=== PATIENT | female | born 1995 | race Caucasian/White ===

== ENCOUNTER 2017-12-13 13:04 | Emergency (ER) | payer BC ==
[2017-12-13 15:32] VITALS: BP 103/61
--- NOTE | 2017-12-13 15:45 | UC ---
Back Pain HPI - HPI Summary HPI Summary: 22 y/o female presents to the urgent care c/o lower back pain s/p fall while running on track practice yesterday around 1200N. Pt states she had Hx of back injury about 6 years ago w/ a bulged disc at L5. She felt on her back. Pain is 8 /10 radiating to RT side of hip w/ mild numbness. Pt denies saddle anesthesia, urinary or fecal incontinence, SOB, chest pain, abdominal pain, N/V/D - History of Current Complaint Chief Complaint: UCBackPain Stated Complaint: BACK PAIN Time Seen by Provider: 12/13/17 15:27 Hx Obtained From: Patient Hx Last Menstrual Period: 12/07/2017 Onset/Duration: Sudden Onset, Lasting Days - 1 day, Still Present Timing: Constant Severity Initially: Moderate Severity Currently: Moderate Pain Intensity: 8 Pain Scale Used: 0-10 Numeric Back Pain: Is Discrete @ - Lower back around L5 Character: Sharp, Throbbing, Spasmodic Aggravating Factor(s): Movement, Lifting, Bending Alleviating Factor(s): Rest, OTC Meds Associated Signs And Symptoms: Positive: Numbness, Tingling - RT side leg. Negative: Swelling, Redness, Bruising, Fever, Weakness, Abdominal Pain, Flank Pain, Bladder Incontinence, Bowel Incontinence, Pain with Weight Bearing - Risk Factors AAA Risk Factors: Negative TAD Risk Factors: Negative Cauda Equina Risk Factors: Negative Epidural Abscess Risk Factors: Negative - Allergies/Home Medications Allergies/Adverse Reactions: Allergies Allergy/AdvReac Type Severity Reaction Status Date / Time MS Fish Allergy Allergy Anaphylatic Verified 01/19/17 08:54 [Fish Allergy] Shock MS Sesame Oil [Sesame Oil] Allergy Anaphylatic Verified 01/19/17 08:54 Shock Tree Nuts Allergy Anaphylatic Verified 01/19/17 08:54 Shock GLUTEN Allergy GI Upset Uncoded 01/19/17 08:54 Home Medications: Home Medications Naproxen Sod/Diphenhydramine [Aleve PM 220-25 mg] 12/13/17 [History] PMH/Surg Hx/FS Hx/Imm Hx Previously Healthy: Yes - Pt denies PMHX - Surgical History Surgical History: Yes Surgery Procedure, Year, and Place: 5TH METATARSAL REPAIR RT FOOT - Family History Known Family History: Positive: Respiratory Disease - Asthma - Social History Occupation: Student Lives: With Family Alcohol Use: None Substance Use Type: None Smoking Status (MU): Never Smoked Tobacco - Immunization History Vaccination Up to Date: Yes Review of Systems Constitutional: Negative Skin: Negative Eyes: Negative ENT: Negative Respiratory: Negative Cardiovascular: Negative Gastrointestinal: Negative Genitourinary: Negative Motor: Negative Neurovascular: Negative Musculoskeletal: Decreased ROM - Lower back, Other: - lower back pain s/p jumping on a race competition Neurological: Negative Psychological: Negative Is Patient Immunocompromised?: No All Other Systems Reviewed And Are Negative: Yes Physical Exam Triage Information Reviewed: Yes Appearance: Well-Appearing, No Pain Distress, Well-Nourished, Thin Vital Signs: Initial Vital Signs Temp 97.9 F 12/13/17 15:25 Pulse 85 12/13/17 15:25 Resp 16 12/13/17 15:25 BP 103/61 12/13/17 15:25 Pulse Ox 100 12/13/17 15:25 Vital Signs Reviewed: Yes Eyes: Positive: Conjunctiva Clear - PERRLA, EOMI. ENT: Positive: Normal ENT inspection, Hearing grossly normal, Pharynx normal, TMs normal, Uvula midline Neck: Positive: Supple, Nontender, No Lymphadenopathy Respiratory: Positive: Chest non-tender, Lungs clear, Normal breath sounds, No respiratory distress Cardiovascular: Positive: RRR, No Murmur, Pulses Normal, Brisk Capillary Refill Abdomen Description: Positive: Nontender, No Organomegaly, Soft. Negative: CVA Tenderness (R), CVA Tenderness (L) Bowel Sounds: Positive: Present Musculoskeletal: Positive: Strength Intact, Other: - BACK: Patient walked into the urgent care room with symmetric ambulation, No signs of limping, antalgic, able to bear weight. No signs of trauma, No masses palpated. Point tenderness at the level of L5-S1, No CVAT, no flank ecchymosis . Mild sacroiliac notch tenderness, No saddle anesthesia.ROM: limited due to pain, Straight Leg Raise: negative. Patellar reflexes: brisk, symmetric Muscle strength lower extremities. Dorsiflexion/ plantar flexion of ankles. Heel/ toe walk. Lower extremities: Femoral, popliteal, posterior tibial, and dorsalis pedis pulses WNL. Pt refuse rectal exam Neurological: Positive: Alert, Muscle Tone Normal Psychological Exam: Normal Skin Exam: Normal - Additional Comments 1- Please take Naproxen PO as directed after meals for pain. 2- Take Flexeril PO as directed for muscle spasm. Please do not drive while taking the medication. 3- Wear a back support. Avoid strenuous exercise of heavy lifting. 4- Please follow up with Orthopedic Dr or your PCP in 1 week if not improvement of symptoms, for further management. Back Pain Course/Dx - Course Course Of Treatment: 22 y/o female presents to the urgent care c/o lower back pain s/p fall while running on track practice yesterday around 1200N. Pt states she had Hx of back injury about 6 years ago w/ a bulged disc at L5. She felt on her back. Pain is 8/10 radiating to RT side of hip w/ mild numbness. Pt denies saddle anesthesia, urinary or fecal incontinence, SOB, chest pain, abdominal pain, N/V/D. Hx obtained. PE performed. LMP:12/10/2017. Lumbosacral X-ray ordered, Impression:Minor levoscoliosis, No acute osseous injury observed. Toradol IM inj ordered at the clinic. Given by nurse. Pt tolerated well medication and pain decrease. Pt Rx Naproxen PO, Prednisone and flexeril PO and given a PT referral. Patient was instructed to the f/u [facility] orthopedic in 1 week if symptoms do not improve or worsen. Patient understands and agrees. Patient is able to ambulate freely w/o aid or limp. Plan of care was discussed with the patient and patient understands and agrees. All questions were answered at patient satisfaction. Pt left clinic hemodynamically stable. - Differential Dx/Diagnosis Differential Diagnosis/HQI/PQRI: Compressive Cord Syndrome, Fracture, Herniated Disc, Strain, Sprain Provider Diagnoses: 1- Acute lower back pain s/p fall. 2- back muscle spasm. 3-Scoliosis Discharge - Discharge Plan Condition: Stable Disposition: HOME Prescriptions: Cyclobenzaprine TAB* [Flexeril 10 MG TAB*] 10 mg PO TID PRN #15 tab PRN Reason: Spasms - Back Naproxen [Naproxen 500 mg] 500 mg PO Q8H PRN #30 tab PRN Reason: Pain predniSONE TAB* [Deltasone TAB*] 20 mg PO DAILY #11 tab Patient Education Materials: Scoliosis in Children (DC), Acute Low Back Pain ( ED), Muscle Spasm (ED) Referrals: [facility] [Outside] - 1 Week Additional Instructions: 1- Please take Naproxen PO as directed after meals for pain. 2- Take Flexeril PO as directed for muscle spasm. Please do not drive while taking the medication. 3- Wear a back support. Avoid strenuous exercise of heavy lifting. 4- Please follow up with your Orthopedic Dr or your PCP in 1 week if not improvement of symptoms, for further management.
[2017-12-13] MEDS ORDERED: Ketorolac INJ* 60 MG/2 ML VIAL IM ONE (15:47)
--- NOTE | 2017-12-13 16:26 | RAD ---
INDICATION: Back pain COMPARISON: None TECHNIQUE: Standing PA, lateral, and oblique imaging was performed . FINDINGS: Bones: There are no acute bony findings. There are no significant osteoarthritic findings. Alignment: There is minor levoscoliosis Disc spaces: The disc spaces are well-maintained Soft tissues: There are no soft tissue abnormalities. IMPRESSION: MINOR LEVOSCOLIOSIS, OTHERWISE NEGATIVE
== END 2017-12-13 16:44 | disposition home or self-care (01) ==
LOC: UCEAST 13:04
DX: M54.5 Low back pain (principal); M62.830 Muscle spasm of back; M41.9 Scoliosis, unspecified; Z91.018 Allergy to other foods; Z91.013 Allergy to seafood
CPT/HCPCS: 72110; 96372; 99212; G0463; J1885

== ENCOUNTER 2019-03-28 12:06 | Emergency (ER) | payer BC ==
--- NOTE | 2019-03-28 13:59 | UC ---
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 Pt states had chiropractor adjustment this morning. Pt states after this, she bent over and has severe pain right SI joint - pain radiates to LE - anterior/lateral thigh. Unable to get comfortable. No paresthesia, no weaknes. Took Motrin without relief. no bowel/bladder changes. no direct trauma. Pain increased from baseline. No abd pain no n/v/d Pt has not contacted employment trainer, Pt states not Pt's medications reviewed this visit - History of Current Complaint Stated Complaint: BACK PAIN Time Seen by Provider: 03/28/19 13:58 Hx Obtained From: Patient Hx Last Menstrual Period: 12/07/2017 ?: No Onset/Duration: Sudden Onset - Allergies/Home Medications Allergies/Adverse Reactions: Allergies Allergy/AdvReac Type Severity Reaction Status Date / Time Fish Containing Products Allergy Anaphylatic Verified 03/28/19 13:57 Shock sesame oil Allergy Anaphylatic Verified 03/28/19 13:57 Shock Tree Nuts Allergy Anaphylatic Verified 03/28/19 13:57 Shock GLUTEN Allergy GI Upset Uncoded 03/28/19 13:57 Home Medications: Home Medications Control Unknown Name 1 tab PO DAILY 03/28/19 [History] PMH/Surg Hx/FS Hx/Imm Hx Previously Healthy: Yes - Surgical History Surgery Procedure, Year, and Place: 5TH METATARSAL REPAIR RT FOOT - Family History Known Family History: Positive: Respiratory Disease - Asthma, Non-Contributory - Social History Occupation: Student Lives: Dormitory/Roommates Alcohol Use: None Substance Use Type: None Smoking Status (MU): Never Smoked Tobacco - Immunization History Vaccination Up to Date: Yes Review of Systems All Other Systems Reviewed And Are Negative: Yes Constitutional: Positive: Negative Skin: Positive: Negative Musculoskeletal: Positive: Other: Neurological: Positive: Negative Is Patient Immunocompromised?: No Physical Exam - Summary Physical Exam Summary: Vital Signs Reviewed: Yes A+Ox3, discomfort Eyes: Conjunctiva Clear, HEENT: TM x 2 clear, mmmoist Neck: Positive: Supple Respiratory: Positive: No respiratory distress, No accessory muscle use + CTA throughout no w/r Cardiovascular: RRR nl s1, s2 no m/r CBT <2 sec abd soft + BS nt/nd no guarding, no distension Musculoskeletal Exam: No spinous process pain c/t/l/s + TTP right SI joint with direct palp Full AROM upper ext + SLE right with mild disomfort right buttock + SLE left + extension hip + flex/ext knee, ankle + gret toe ex Neurological: Positive: Alert, + sensation throughout 5/5 SLE, f;ex/ext knee, ankle 2+ patella b/l + achills no clonus, + great toe extension + gross sensation b/l, pt repors paresthesia anterior right thig h Psychological: Positive: Normal Response To Family Skin: Positive: no rash, no ecchymosis Triage Information Reviewed: Yes Diagnostics - Radiology No standard instances Radiology Interpretation Completed By: Radiologist - Patient Name: TONI PINEDA Medical Record#: [id number] Ordering Physician: Aura Urban MD Acct.#: [id number] : 1995 Age: 23 Sex: F Location: [facility] Exam Date: 03/28/19 1415 ADM Status: DEP ER Order Information: SACROILIAC JOINTS 3+ VWS Accession Number: [id number] CPT: 23386 HISTORY: acute right SI jt s/p chiro adjust and bending . COMPARISONS: None relevant available at the time of dictation. VIEWS : 3, frontal, and bilateral oblique views of the SI joints FINDINGS: BONE DENSITY: Normal. BONES: There is no displaced fracture. The sacral arches are intact. JOINTS: There is no arthropathy. ALIGNMENT: There is no dislocation. SOFT TISSUES: Unremarkable. OTHER FINDINGS: None. IMPRESSION: NO ACUTE OSSEOUS INJURY. IF SYMPTOMS PERSIST, RECOMMEND REPEAT IMAGING. <Electronically signed by Rolando Hoang MD in OV> 03/28/191443 Dictated By: Rolando Hoang MD Dictated Date/Time: 03/28/191443 Transcribed Date/Time: 03/28/191443 Copy to: CC:Aura Urban MD; No Primary Care Phys,NOPCP Imaging - [facility] Imaging - [facility] [address] [address] ph ([phone]) ph ([phone]) ph ([phone]) This report is only to be considered final once signed by the Provider(s) as displayed in the "<Electronically Signed by >" field (s). Absence of a signature indicates the report is in a draft status and still needs to be finalized. In the event this document was created by someone other than the signing Provider, the individual initiating the document will be listed in the "Entered by:" or "Dictated by:" santos. 1 of 1 Back Pain Course/Dx - Course Course Of Treatment: Pt with h/o recurrent back pain. Pt s/p chiro adjustment earlier today - pt states bent over and now with increased pain right SI jt. 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 Ventura ) Additional Instructions: - Go directly to [facility] - sports medicine - Dr. Ventura is expecting you - Bring a copy of your imaging study on CD with you to your appointment -If you pain becomes uncontrolled, you develop difficulty controlling your urine (lose control or can't go) it is recommended you go immediately to the emergency department - Billing Disposition and Condition Condition: STABLE Disposition: Home
[2019-03-28 14:05] VITALS: BP 119/68
[2019-03-28] MEDS ORDERED: Acetaminophen TAB* 325 MG PO ONE (14:15)
== END 2019-03-28 14:42 | disposition home or self-care (01) ==
LOC: UCEAST 12:06
DX: M54.5 Low back pain (principal); Z91.018 Allergy to other foods; Z91.013 Allergy to seafood; Z91.048 Other nonmedicinal substance allergy status
CPT/HCPCS: 72202; 99211; A9270-GY; G0463